=== PATIENT | female | born 1995 | race Caucasian/White ===

== ENCOUNTER 2018-12-14 10:12 | Emergency (ER) | payer OTHER ==
[~2018-12-14] VITALS: Ht 167.6 cm; Wt 64.4 kg
[2018-12-14 10:15] VITALS: BP 115/75
--- NOTE | 2018-12-14 11:56 | NUR ---
MOVED PT TO ER BED 9
[2018-12-14] MEDS ORDERED: ACETAMINOPHEN 325 MG TAB PO ONE (12:30)
--- NOTE | 2018-12-14 12:43 | NUR ---
PO MEDS GIVEN-NADR AT THIS TIME, U/S AT BEDSIDE
[2018-12-14 14:27] LABS: APPEARANCE,URINE CLEAR (CLEAR); BILIRUBIN,URINE NEGATIVE (NEGATIVE); BLOOD, URINE 2+ (NEGATIVE); COLOR,URINE YELLOW (YELLOW); LEUKOCYTE ESTERASE ,URINE TRACE (NEGATIVE); NITRITE, URINE NEGATIVE (NEGATIVE); UGLUCOSE NEGATIVE (NEGATIVE)
[2018-12-14 14:34] VITALS: BP 115/75
--- NOTE | 2018-12-14 14:35 | NUR ---
Patient discharged with v/s stable. Written and verbal after care instructions given and explained. Patient alert, oriented and verbalized understanding of instructions. Ambulatory with to home. All questions addressed prior to discharge. ID band removed. Patient advised to follow up with PMD. Rx of TYLENOL 325 MG TAB given. Patient educated on indication of medication including possible reaction and side effects. Opportunity to ask questions provided and answered.
[2018-12-14 14:52] LABS: RBC,URINE 11-20 (MOD) /HPF (0-5)
[2018-12-14 14:54] LABS: WBC,URINE 0-5 /HPF (0-5)
== END 2018-12-14 14:35 | disposition home or self-care (01) ==
LOC: MED 10:12
DX: O20.0 Threatened abortion (principal); Z3A.13 13 weeks gestation of pregnancy
CPT/HCPCS: 76801; 81001; 81025; 84703; 99284; Q0092

== ENCOUNTER 2019-03-18 22:40 | Observation (INO) | payer OTHER ==
[~2019-03-18] VITALS: Ht 167.6 cm; Wt 72.6 kg
[2019-03-18 23:44] VITALS: BP 110/62
--- NOTE | 2019-03-19 06:29 | NUR ---
PATIENT HAS BEEN SCREENED AND CATEGORIZED LOW NUTRITION RISK. PATIENT WILL BE SEEN WITHIN 7 DAYS OF ADMISSION. 03/24/19 FORTINO CENTENO MS, RDN
[2019-03-19 06:48] LABS: APPEARANCE,URINE HAZY (CLEAR); BILIRUBIN,URINE NEGATIVE (NEGATIVE); BLOOD, URINE 3+ (NEGATIVE); COLOR,URINE YELLOW (YELLOW); LEUKOCYTE ESTERASE ,URINE NEGATIVE (NEGATIVE); NITRITE, URINE NEGATIVE (NEGATIVE); UGLUCOSE NEGATIVE (NEGATIVE)
[2019-03-19 07:28] LABS: RBC,URINE 11-20 (MOD) /HPF (0-5); WBC,URINE 0-5 /HPF (0-5)
== END 2019-03-19 09:35 | disposition home or self-care (01) ==
LOC: MLD 22:40
PROVIDERS: ADMIT Obstetrics & Gynecology; ATTEND Obstetrics & Gynecology
DX: O26.832 Pregnancy related renal disease, second trimester (principal); Z3A.27 27 weeks gestation of pregnancy; R31.9 Hematuria, unspecified
CPT/HCPCS: 36415; 76770; 76805; 81001; 82731; 87086; G0378; Q0092